=== PATIENT | male | born 1945 | race Caucasian/White ===

== ENCOUNTER → 2016-08-01 | Outpatient (CLI) | payer OTHER ==
--- NOTE | 2016-08-01 17:01 | DX ---
Chest, PA and Lateral History: Pleuritic chest pain x3 months, history of prior pneumonias x3, R07.81 Comparison: April 15, 2015 Findings: Mildly prominent lung volumes and sparse peripheral pulmonary vessels suggest underlying ai rways disease or COPD. Lungs are clear, without infiltrate or consolidation. Heart size is relatively small consistent with a large lung volumes. The pulmonary vascularity is not plethoric. There is no adenopathy or mass lesion. There is no pleural effusion, pneumomediastinum or pneumothorax. Bones are unremarkable for age. Impression: Suspect airways disease/COPD. No pneumonia or effusion.
== END ==
LOC: FIMAGING 09:06
PROVIDERS: ATTEND Internal Medicine
DX: J44.9 Chronic obstructive pulmonary disease, unspecified (principal); Z87.01 Personal history of pneumonia (recurrent)

== ENCOUNTER → 2016-08-04 | Outpatient (CLI) | payer OTHER ==
--- NOTE | 2016-08-04 09:07 | MR ---
MRI of the Brain (Without Contrast), 8:15 AM History: Episode of abnormal behavior, R46.89, head pressure. Technique: T1-weighted images were acquired axially and sagittally from the foramen magnum to the ve rtex. Axial fast inversion recovery, fast T2-weighted, GRE and diffusion-weighted axial images were obtained without contrast. Comparison: None Findings: There is asymmetrically decreased flow void in the right cavernous carotid artery compared to that on the left. Also on sagittal T1 images through the cervical region there is possibly a steno sis of the proximal left internal carotid artery. There is symmetric flow void above this area. Foci of white matter hyperintensity, involving subcortical deep and periventricular regions. None of thes e areas are bright on the diffusion study or associated with hemorrhage on the gradient or SWI sequen ce. The ventricles, cisterns, and sulci are appropriate for age. There is no hydrocephalus, midline s hift, herniation, or epidural/subdural hematomas. No intracranial hemorrhage or masses. Diffusion-sarah ghted sequence demonstrates no acute infarct. Cerebellar tonsils are in normal position. Pituitary gl and is normal in size. Normal signal flow-void in the superior sagittal sinus, basilar artery, and bi lateral internal carotid arteries indicating patency. Paranasal sinuses and mastoid air cells are jackie ar. Impression: 1. Suspicious for right cavernous and possible left proximal post bifurcation internal carotid artery stenoses without downstream cortical infarction. Consider MRA or CTA of the head and neck to evaluate the entire course of the internal carotid arteries. Results called to Dr. Lam at 9:01 AM.
== END ==
LOC: FIMAGING 07:58
PROVIDERS: ATTEND Internal Medicine
DX: R46.89 Other symptoms and signs involving appearance and behavior (principal); R93.0 Abnormal findings on diagnostic imaging of skull and head, not elsewhere classified

== ENCOUNTER → 2016-08-09 | Outpatient (CLI) | payer OTHER ==
[~2016-08-09] MED LIST: IOPAMIDOL (ISOVUE 370) 100 ML BTL IV ONE
== END ==
LOC: FIMAGING 11:33
PROVIDERS: ATTEND Internal Medicine
DX: I65.23 Occlusion and stenosis of bilateral carotid arteries (principal)
CPT/HCPCS: 70496; 70498; Q9967

== ENCOUNTER → 2016-08-31 | Outpatient (CLI) | payer OTHER | LOC: FIMAGING 10:22 | PROVIDERS: ATTEND Internal Medicine | DX: R91.8 Other nonspecific abnormal finding of lung field (principal) ==

== ENCOUNTER → 2016-09-11 | Outpatient (CLI) | payer OTHER | LOC: FIMAGING 13:33 | DX: K66.8 Other specified disorders of peritoneum (principal); Z98.890 Other specified postprocedural states ==

== ENCOUNTER → 2017-03-22 | Outpatient (CLI) | payer OTHER | LOC: FIMAGING 03-18 08:05 | DX: R13.10 Dysphagia, unspecified (principal) ==

== ENCOUNTER → 2017-03-24 | Outpatient (CLI) | payer OTHER ==
[~2017-03-24] MED LIST changes: +GADOBUTROL 10 ML VIAL IVP ONE; -IOPAMIDOL (ISOVUE 370) 100 ML BTL IV ONE
== END ==
LOC: FIMAGING 12:33
PROVIDERS: ATTEND Internal Medicine
DX: G89.4 Chronic pain syndrome (principal); Z98.1 Arthrodesis status
CPT/HCPCS: 72110; 72158; A9585

== ENCOUNTER → 2017-03-28 | Outpatient (CLI) | payer OTHER | LOC: FIMAGING 08:07 | PROVIDERS: ATTEND Internal Medicine | DX: M48.061 Spinal stenosis, lumbar region without neurogenic claudication (principal) ==

== ENCOUNTER 2017-10-07 23:01 | Emergency (ER) | payer OTHER ==
[2017-10-07 23:07] VITALS: BP 143/79
--- NOTE | 2017-10-07 23:36 | EDPHY ---
H & P Stated Complaint: FLUSHED SOAP UP HIS NOSE 30 MIN AGO, FLUSHED WELL WITH WATH Source: Patient Exam Limitations: No limitations - Personal History Current Tetanus/Diphtheria Vaccine: Yes Current Tetanus Diphtheria and Acellular Pertussis (TDAP): Yes - Medical/Surgical History Hx Asthma: No Hx Chronic Respiratory Disease: No Hx Diabetes: No Hx Cardiac Disease: No Hx Renal Disease: No Hx Cirrhosis: No Hx Alcoholism: No Hx HIV/AIDS: No Hx Splenectomy or Spleen Trauma: No Other PMH: anxiety, depression, insomnia, severe back pain, leg pain, DJD, hypelipidemia, recurrent pneumonia, right foot drop, GERD; sleep apnea; barrets espogus; EGD; - Social History Smoking Status: Former smoker Time Seen by Provider: 10/07/17 23:35 HPI/ROS: HPI: This is a 72-year-old male who presents with Chief Complaint: FLUSHED SOAP UP HIS NOSE 30 MIN AGO, FLUSHED WELL WITH WATER Location: Nose Quality: surgical scrub Duration: Prior to arrival Signs and Symptoms: No vision changes, no visual floaters, no headache, no epistaxis, no ocular discharge, no eye pain Timing: Rapid onset, rapidly improved Severity: Mild Context: Pt accidently grabbed the wrong solution to flush out his nose and used surgical solution. Pt then flushed out his nose with his nose solution multiple times. Pt reports his nose still has a burning feeling but it is almost completely resolved. He wants to make sure it is ok and not burnt inside. Patient reports that he has a surgical scrub as he is scheduled to have a spinal stimulator be surgically placed next week. Modifying Factors: Copious irrigation with moderate relief Comment: ROS: see HPI Constitutional: No fever, no chills, no weight loss Eyes: No blurred vision Respiratory: No shortness of breath, no cough Cardiovascular: No chest pain Gastrointestinal: No nausea, no vomiting, no diarrhea Genitourinary: No dysuria Extremities: No myalgias Neurologic: No weakness, no numbness Skin: No rashes Hematologic: No bruising, no bleeding MEDICAL/SURGICAL/SOCIAL HISTORY: Medical history: anxiety, depression, insomnia, severe back pain, leg pain, DJD , hypelipidemia, recurrent pneumonia, right foot drop, GERD; sleep apnea; [place] esphagus Surgical history: EGD Social history: . Retired. CONSTITUTIONAL: Extremely pleasant elderly white male, awake and alert, no obvious distress HEENT: Atraumatic and normocephalic, PERRL, EOMI. Conjunctiva clear. Tympanic membranes clear. Nares patent with no epistaxis; no septal hematoma; mucosa intact; Oropharynx clear, no exudate and moist pink mucosa. Airway patent. No lymphadenopathy. No meningismus. Cardiovascular: Normal S1/S2, regular rate, regular rhythm, without murmur rub or gallop. PULMONARY/CHEST: Symmetrical and nontender. Clear to auscultation bilaterally. Good air movement. No accessory muscle usage. ABDOMEN: Soft, nondistended, nontender, no rebound, no guarding, no peritoneal signs, no masses or organomegaly. No CVAT. EXTREMITIES: 2/2 pulses, strength 5/5, no deformities, no clubbing, no cyanosis or edema. NEUROLOGICAL: no focal neuro deficits. GCS 15. SKIN: Warm and dry, no erythema. no rash. Good capillary refill. (Kourtney Florentino) Constitutional: Initial Vital Signs Temperature (C) 37.0 C 10/07/17 23:04 Heart Rate 69 10/07/17 23:04 Respiratory Rate 18 10/07/17 23:04 Blood Pressure 143/79 H 10/07/17 23:04 O2 Sat (%) 96 10/07/17 23:04 O2 Delivery Mode Room Air Allergies/Adverse Reactions: No Known Allergies Allergy (Verified 10/07/17 23:07) Home Medications: Medication Instructions Recorded Calcium Carbonate [Tums 500MG (*)] 500 mg PO DAILY PRN 04/15/15 Zolpidem Tartrate [Ambien 10 mg] 10 mg PO HS 04/15/15 traZODone [traZODONE 50MG (*)] 50 - 300 mg PO HS PRN 04/15/15 Percocet 5-325 mg Tablet 08/04/15 Mupirocin 2% [Bactroban 2% Nasal 1 jorden NASAL BID 5 Days #15 tube 10/07/17 (RX)] Medical Decision Making ED Course/Re-evaluation: No ocular involvement Nasal irritation noted All symptoms completely resolved upon arrival to the emergency room. Bacitracin placed in both nares. No signs of 2nd or third-degree burn. This patient was seen under the supervision of my secondary supervising physician. I evaluated care for this patient independently. Discussed this patient with Dr. Ortiz who did not see the patient. (Kourtney Florentino) PHYSICIAN DOCUMENTATION: The patient was evaluated and managed by the Physician Charter Driver. My co- signature indicates that I have reviewed this chart and I agree with the findings and plan of care as documented. I am the secondary supervising physician. (Carolina Ortiz) Differential Diagnosis: Differential diagnosis includes 1st degree burn, contact dermatitis, second- degree burn. (Kourtney Florentino) Departure - Departure Disposition: Home, Routine, Self-Care Clinical Impression: Contact dermatitis, Irritation of nose Condition: Good Instructions: Chlorhexidine (On the skin), Contact Dermatitis (ED) Additional Instructions: Use Bactroban in both nares twice a day x5 days. Referrals: PCP Not In,Dictionary [Medical Doctor] - Follow Up Only If Needed Prescriptions: Mupirocin 2% [Bactroban 2% Nasal (RX)] 1 jorden NASAL BID 5 Days #15 tube
== END 2017-10-07 23:53 | disposition home or self-care (01) ==
DX: L25.9 Unspecified contact dermatitis, unspecified cause (principal); Z87.891 Personal history of nicotine dependence

== ENCOUNTER 2017-10-26 21:57 | Emergency (ER) | payer OTHER ==
[2017-10-26] MEDS ORDERED: OXYCODONE/APAP 5/325MG PREPACK#4 BTL TAKEHOME ONE (23:04)
--- NOTE | 2017-10-26 23:04 | EDPHY ---
H & P Stated Complaint: leaking from surgical site on back from neuro stimulator placed 10/18 Time Seen by Provider: 10/26/17 22:43 HPI/ROS: HPI The patient presents with drainage from surgical wound over the last 2 hr. He was lying in bed and his noticed an approximately 10 cm in diameter [place] of clear pinkish drainage on his sheets. There is no ongoing drainage. He had a nerve stimulator placed on October 18 for peripheral neuropathy by Dr. Rangel at [facility]. He has not had any redness of the skin, increased pain. He does have peripheral neuropathy and thinks it is unchanged after the procedure.. REVIEW OF SYSTEMS Constitutional: No fever, no chills. Eyes: No discharge. ENT: No sore throat. Cardiovascular: No chest pain, no palpitations. Respiratory: No cough, no shortness of breath. Gastrointestinal: No abdominal pain, no vomiting. Genitourinary: No hematuria. Musculoskeletal: No back pain. Skin: No rashes. Neurological: No headache. PMHx: Peripheral neuropathy Soc Hx: Housed with his PHYSICAL General Appearance: Alert, no distress Eyes: Pupils equal and round no pallor or injection ENT, Mouth: Mucous membranes moist Respiratory: Breathing comfortably Neurological: A&O, moves all extremities Skin: Warm and dry, surgical wound on right back with dressing in place, 2 x 2 is soaked in pinkish fluid and Tegaderm reveals some fluid beneath which is serosanguineous Musculoskeletal: Neck is supple non tender Extremities: symmetrical, full range of motion Psychiatric: Patient is oriented X 3, there is no agitation Source: Patient Exam Limitations: No limitations - Personal History Current Tetanus Diphtheria and Acellular Pertussis (TDAP): Yes - Medical/Surgical History Hx Asthma: No Hx Chronic Respiratory Disease: No Hx Diabetes: No Hx Cardiac Disease: No Hx Renal Disease: No Hx Cirrhosis: No Hx Alcoholism: No Hx HIV/AIDS: No Hx Splenectomy or Spleen Trauma: No Other PMH: anxiety, depression, insomnia, severe back pain, leg pain, DJD, hypelipidemia, recurrent pneumonia, right footdrop, GERD; sleep apnea; barrets espogus; EGD; implanted spinal neuro stimulator - Social History Smoking Status: Former smoker Constitutional: Initial Vital Signs Temperature (C) 37 C 10/26/17 22:07 Heart Rate 79 10/26/17 22:07 Respiratory Rate 18 10/26/17 22:07 Blood Pressure 127/89 H 10/26/17 22:07 O2 Sat (%) 98 10/26/17 22:07 O2 Delivery Mode Room Air Allergies/Adverse Reactions: No Known Allergies Allergy (Verified 10/07/17 23:07) Home Medications: Medication Instructions Recorded traZODone [traZODONE 50MG (*)] 50 - 300 mg PO HS PRN 04/15/15 Medical Decision Making Differential Diagnosis: This is a 72-year-old man who is status post nerve stimulator placement on October 18 who now presents with drainage from the wound. In the emergency department, dressing was removed in sterile fashion and this revealed nerve stimulator incision measuring about 5 mm with no surrounding erythema, warmth, edema. There is no palpable areas of induration and there is no tenderness. I was not able to express any drainage from the wound. Bandage was replaced by me. I feel he may have had a seroma or small fluid collection that drained. It does not appear that there is any sign of infection or any other fluid collection. He is comfortable going home and he has follow-up in 2 days. - Data Points Medications Given: Discontinued Medications Oxycodone/Acetaminophen (Percocet 5/325mg Prepack#4) 1 btl TAKEHOME EDNOW ONE Stop: 10/26/17 23:05 Last Admin: 10/26/17 23:09 Dose: 1 btl Departure - Departure Disposition: Home, Routine, Self-Care Clinical Impression: Draining postoperative wound Qualifiers: Encounter type: initial encounter Qualified Code(s): T81.89XA - Other complications of procedures, not elsewhere classified, initial encounter Peripheral neuropathy Qualifiers: Peripheral neuropathy type: polyneuropathy, unspecified Qualified Code(s): G62.9 - Polyneuropathy, unspecified Condition: Good Instructions: Oxycodone/Acetaminophen (By mouth), Wound Infection (ED) Additional Instructions: Your wound does not have an infection. Please follow up with your doctor in the next few days. Return for any redness, swelling, increased pain. Referrals: Vijay Lam MD [Primary Care Provider] - As per Instructions
[2017-10-26 23:15] VITALS: BP 118/58
== END 2017-10-26 23:15 | disposition home or self-care (01) ==
DX: T85.890A Other specified complication of nervous system prosthetic devices, implants and grafts, initial encounter (principal); G62.9 Polyneuropathy, unspecified; Z87.891 Personal history of nicotine dependence; Y75.2 Prosthetic and other implants, materials and neurological devices associated with adverse incidents